=== PATIENT | female | born 1960 | race Caucasian/White ===

== ENCOUNTER 2017-11-09 11:12 | Emergency (ER) | payer OTHER, SELFPAY ==
[2017-11-09] MEDS ORDERED: ISOVUE-370 76%-LOCM 1 ML ONE (11:13)
[2017-11-09 12:03] LABS: #Basophils 0.1 thou/uL (0.0-0.2); #Eosinphils 0.4 thou/uL (0.0-0.7); #Lymphocytes 1.6 thou/uL (1.20-3.40); #Monocytes 0.6 thou/uL (0.11-0.59); #Neutrophils 6.8 thou/uL (1.40-6.50); %Basophils 0.8 % (0.0-1.0); %Eosinophils 4.7 % (0.0-10.0); %Monocytes 6.5 % (0.0-10.0); Hemoglobin 14.6 g/dL (12.0-16.0); Mean Corpuscular HGB CONC 32.9 g/dL (32.0-36.0); Mean Corpuscular Hemoglobin 30.9 pg (27.0-31.0); Mean Platelet Volume 6.8 fL (7.4-10.4); Platelet Count 282 thou/uL (130-400); RBC Distribution Width 12.1 % (11.5-14.5); Red Blood Cell (RBC) Count 4.72 mill/uL (4.20-5.40); White Blood Cell (WBC) Count 9.6 thou/uL (4.8-10.8)
[2017-11-09 12:15] LABS: Bilirubin Negative (Negative); Blood, Urine Large (Negative); Clarity CLOUDY (Clear); Glucose, Urine (Dipstick) Negative (Negative); Leukocyte Large (Negative); Nitrite Negative (Negative); Protein, Urine (Dipstick) Trace mg/dL (Neg-Trace); Specific Gravity, Urine 1.004 (1.002-1.036); Urobilinogen 0.2 mg/dL (0.2-1.0)
[2017-11-09] MEDS ORDERED: Ondansetron HCl/PF 4 MG/2 ML Vial ONE (12:15)
[2017-11-09 12:18] LABS: Bacteria/HPF None Seen HPF (None Seen); Hyaline Casts/LPF 4-6 HYALINE CAST LPF (0-3 Hyaline); Pathc Cast-AUWi Flag 0.72 (0-2.49); Squamous Epithelial None Seen HPF (0-3)
[2017-11-09 12:28] LABS: ALT (SGPT) 30 U/L (8-55); AST (SGOT) 26 U/L (5-34); Albumin 4.4 g/dL (3.5-5.0); Alkaline Phosphatase 82 U/L (40-150); Anion Gap 15 mmol/L (10-20); BUN (Urea Nitrogen) 9 mg/dL (9.8-20.1); Bilirubin, Total 0.8 mg/dL (0.2-1.2); CK (CPK) 41 U/L (29-168); Calc. Creatinine Clearance 0 mL/min (70-130); Calcium 9.6 mg/dL (7.8-10.44); Carbon Dioxide 26 mmol/L (22-29); Chloride 104 mmol/L (98-107); Estimated GFR-MDRD 72; Globulin 2.9 g/dL (2.4-3.5); Glucose 96 mg/dL (70-105); Lipase 18 U/L (8-78); Potassium 3.6 mmol/L (3.5-5.1); Protein, Total 7.3 g/dL (6.0-8.3); Sodium 141 mmol/L (136-145)
[2017-11-09 12:32] LABS: CKMB 0.9 ng/mL (0-6.6); Troponin I Less than 0.010 ng/mL (< 0.028)
--- NOTE | 2017-11-09 14:35 | CT ---
CONTRAST ENHANCED CT ABDOMEN AND PELVIS: Date: 11/09/17 HISTORY: Right lower quadrant pain. FINDINGS: Contrast enhanced CT images of the abdomen and pelvis are obtained after the administration of IV con trast. The lung bases are unremarkable. No evidence of free intraperitoneal air seen. The liver and spleen are unremarkable. The gallbladder and pancreas are unremarkable. Adrenal glands and kidneys demonstrate no evidence of definite suspicious masses. There is a left renal cortical cys t seen. No evidence of hydroureteronephrosis seen. The small bowel is unremarkable. A normal appendix is visualized. No definite evidence of colonic mas s is seen. No evidence of periaortic or pelvic lymphadenopathy seen. IMPRESSION: Normal contrast enhanced CT images of the abdomen and pelvis. POS: [facility]
== END 2017-11-09 13:45 | disposition home or self-care (01) ==
LOC: ERS 11:12
DX: N30.01 Acute cystitis with hematuria (principal); F41.9 Anxiety disorder, unspecified; Z79.899 Other long term (current) drug therapy
CPT/HCPCS: 74177; 80053; 81003; 81015; 82553; 83690; 84484; 85025; 87086; 93005; 96374; J2405

== ENCOUNTER 2018-03-30 20:15 | Emergency (ER) | payer SELFPAY ==
[2018-03-30 21:19] LABS: #Basophils 0.1 thou/uL (0.0-0.2); #Eosinphils 0.3 thou/uL (0.0-0.7); #Lymphocytes 2.8 thou/uL (1.20-3.40); #Monocytes 0.7 thou/uL (0.11-0.59); #Neutrophils 5.8 thou/uL (1.40-6.50); %Basophils 1.4 % (0.0-1.0); %Eosinophils 2.9 % (0.0-10.0); %Lymphocytes 28.8 % (21.0-51.0); %Monocytes 6.9 % (0.0-10.0); Hemoglobin 14.4 g/dL (12.0-16.0); Mean Corpuscular HGB CONC 33.7 g/dL (32.0-36.0); Mean Corpuscular Hemoglobin 31.7 pg (27.0-31.0); Mean Platelet Volume 6.7 fL (7.4-10.4); Platelet Count 246 thou/uL (130-400); RBC Distribution Width 12.5 % (11.5-14.5); Red Blood Cell (RBC) Count 4.56 mill/uL (4.20-5.40); White Blood Cell (WBC) Count 9.6 thou/uL (4.8-10.8)
--- NOTE | 2018-03-30 21:20 | CT ---
CT BRAIN WITHOUT CONTRAST: INDICATIONS: History of not feeling right with lightheadedness and pressure, extending from head down the ne ck. COMPARISON: Prior CT brain, dated 03/01/2013. FINDINGS: No acute infarct, hemorrhage, or hydrocephalus is present. The septum pellucidum and third ventricle are midline. The visualized paranasal sinuses are clear. The mastoid air cells are clear. The sku ll is intact. IMPRESSION: No acute intracranial abnormality demonstrated by CT. POS: [facility]
[2018-03-30 21:38] LABS: ALT (SGPT) 30 U/L (8-55); AST (SGOT) 22 U/L (5-34); Albumin 4.3 g/dL (3.5-5.0); Alkaline Phosphatase 89 U/L (40-150); Anion Gap 15 mmol/L (10-20); BUN (Urea Nitrogen) 25 mg/dL (9.8-20.1); Bilirubin, Total 0.5 mg/dL (0.2-1.2); Calc. Creatinine Clearance 0 mL/min (70-130); Calcium 9.5 mg/dL (7.8-10.44); Carbon Dioxide 27 mmol/L (22-29); Chloride 102 mmol/L (98-107); Estimated GFR-MDRD 71; Globulin 2.5 g/dL (2.4-3.5); Glucose 86 mg/dL (70-105); Potassium 3.7 mmol/L (3.5-5.1); Protein, Total 6.8 g/dL (6.0-8.3); Sodium 140 mmol/L (136-145)
== END 2018-03-30 22:31 | disposition home or self-care (01) ==
LOC: ERS 20:15
DX: I10 Essential (primary) hypertension (principal); J32.9 Chronic sinusitis, unspecified; F41.9 Anxiety disorder, unspecified; E20.9 Hypoparathyroidism, unspecified
CPT/HCPCS: 36415; 70450; 80053; 84484; 85025; 93005; 94760

== ENCOUNTER 2018-10-01 10:15 | Outpatient (CLI) | payer OTHER ==
--- NOTE | 2018-10-01 17:26 | NM ---
HEPATOBILIARY SCAN: Date: 10/01/18 HISTORY: Right upper quadrant pain. No gallstones on ultrasound of 09/29/18. RADIOPHARMACEUTICAL: 5.3 mCi technetium-99m mebrofenin injected intravenously. FINDINGS: There is good tracer extraction by the liver with prompt excretion into the biliary tract and small b owel loops, and normal filling of the gallbladder. The calculated gallbladder ejection fraction follo wing an oral fatty meal measures 54%. IMPRESSION: Normal exam. POS: [facility]
== END 2018-10-01 10:16 | disposition home or self-care (01) ==
LOC: NM 10:15
PROVIDERS: ATTEND Physician Assistant Medical
DX: R10.11 Right upper quadrant pain (principal)
CPT/HCPCS: 78227; A9537

== ENCOUNTER 2021-03-01 11:26 | Inpatient (IN) | payer OTHER ==
[2021-03-01] MEDS ORDERED: Ketorolac Tromethamine 30 MG/ML VIAL ONE (11:57)
[2021-03-01] MEDS ORDERED: Ondansetron PF 4 MG/2 ML Vial ONE (11:57)
[2021-03-01 12:04] LABS: #Eosinphils 0.1 thou/uL (0.0-0.7); #Neutrophils 9.3 thou/uL (1.40-6.50); %Basophils 0.2 % (0.0-1.0); %Eosinophils 0.8 % (0.0-10.0); %Lymphocytes 16.1 % (21.0-51.0); %Monocytes 8.2 % (0.0-10.0); %Neutrophils 74.6 % (42.0-75.0); Hemoglobin 14.3 g/dL (12.0-16.0); Mean Corpuscular HGB CONC 34.1 g/dL (32.0-36.0); Mean Corpuscular Hemoglobin 32.4 pg (27.0-31.0); Mean Platelet Volume 6.2 fL (7.4-10.4); Platelet Count 286 thou/uL (130-400); RBC Distribution Width 12.9 % (11.5-14.5); Red Blood Cell (RBC) Count 4.41 mill/uL (4.20-5.40); White Blood Cell (WBC) Count 12.5 thou/uL (4.8-10.8)
[2021-03-01 12:20] LABS: ALT (SGPT) 22 U/L (8-55); AST (SGOT) 18 U/L (5-34); Albumin 4.2 g/dL (3.4-4.8); Alkaline Phosphatase 80 U/L (40-110); Anion Gap 17 mmol/L (10-20); BUN (Urea Nitrogen) 10 mg/dL (9.8-20.1); Bilirubin, Total 1.2 mg/dL (0.2-1.2); Calc. Creatinine Clearance 0 mL/min (70-130); Calcium 8.8 mg/dL (7.8-10.44); Carbon Dioxide 24 mmol/L (23-31); Chloride 103 mmol/L (98-107); Globulin 2.4 g/dL (2.4-3.5); Glucose 101 mg/dL (80-115); Lipase 16 U/L (8-78); Potassium 3.7 mmol/L (3.5-5.1); Protein, Total 6.6 g/dL (5.8-8.1); Sodium 140 mmol/L (136-145)
[2021-03-01 13:05] LABS: Bacteria/HPF None Seen HPF (None Seen); Bilirubin Negative (Negative); Blood, Urine Negative (Negative); Clarity Clear (Clear); Glucose, Urine (Dipstick) Normal (Negative); Ketone, Urine Negative (Negative); Leukocyte 75 Leu/uL (Negative); Nitrite Negative (Negative); Protein, Urine (Dipstick) Negative (Neg-Trace); RBC/HPF 0-3 HPF (0-3); Specific Gravity, Urine 1.011 (1.002-1.036); Squamous Epithelial 0-3 HPF (0-3); Urobilinogen Normal mg/dL (Less than 2)
[2021-03-01] MEDS ORDERED: Morphine 4 MG/ML VIAL ONE (15:24)
[2021-03-01] MEDS ORDERED: Iopamidol 370 76% 100 ML VIAL ONE (16:29)
[2021-03-01] MEDS ORDERED: Acetaminophen 650 MG Suppository PR PRN (19:01)
[2021-03-01] MEDS ORDERED: diphenhydrAMINE 50 MG/ML VIAL IVP PRN (19:04)
[2021-03-01] MEDS ORDERED: Morphine 4 MG/ML VIAL SLOW IVP PRN ×2 (19:08→19:17)
[2021-03-01] MEDS ORDERED: Enoxaparin Sodium 40 MG/0.4 ML SYRINGE SC SCH (19:15)
[2021-03-01] MEDS: Sodium Chloride 0.9% 1,000 ML IV SCH (19:39)
[2021-03-01] MEDS: Pantoprazole 40 MG VIAL IVP SCH (19:40)
[2021-03-01 20:03] LABS: #Basophils 0.1 thou/uL (0.0-0.2); #Eosinphils 0.2 thou/uL (0.0-0.7); #Lymphocytes 2.2 thou/uL (1.20-3.40); #Monocytes 0.8 thou/uL (0.11-0.59); #Neutrophils 6.1 thou/uL (1.40-6.50); %Basophils 0.7 % (0.0-1.0); %Eosinophils 2.4 % (0.0-10.0); %Lymphocytes 23.9 % (21.0-51.0); %Monocytes 8.3 % (0.0-10.0); %Neutrophils 64.7 % (42.0-75.0); Hemoglobin 13.7 g/dL (12.0-16.0); Mean Corpuscular HGB CONC 32.8 g/dL (32.0-36.0); Mean Corpuscular Hemoglobin 31.9 pg (27.0-31.0); Mean Corpuscular Volume 97.2 fL (78.0-98.0); Mean Platelet Volume 6.7 fL (7.4-10.4); Platelet Count 234 thou/uL (130-400); RBC Distribution Width 13.1 % (11.5-14.5); Red Blood Cell (RBC) Count 4.28 mill/uL (4.20-5.40); White Blood Cell (WBC) Count 9.4 thou/uL (4.8-10.8)
[2021-03-01 20:28] LABS: ALT (SGPT) 18 U/L (8-55); AST (SGOT) 19 U/L (5-34); Albumin 3.7 g/dL (3.4-4.8); Alkaline Phosphatase 68 U/L (40-110); Anion Gap 15 mmol/L (10-20); BUN (Urea Nitrogen) 10 mg/dL (9.8-20.1); Bilirubin, Total 1.2 mg/dL (0.2-1.2); Calc. Creatinine Clearance 0 mL/min (70-130); Calcium 8.5 mg/dL (7.8-10.44); Carbon Dioxide 22 mmol/L (23-31); Chloride 107 mmol/L (98-107); Globulin 2.5 g/dL (2.4-3.5); Glucose 86 mg/dL (80-115); Potassium 3.4 mmol/L (3.5-5.1); Protein, Total 6.2 g/dL (5.8-8.1); Sodium 141 mmol/L (136-145)
[2021-03-01] MEDS ORDERED: Famotidine/PF 20 mg/2ml Vial SLOW IVP SCH (21:00)
[2021-03-01] MEDS: Ketorolac Tromethamine 30 MG/ML VIAL IVP SCH (21:14)
[2021-03-02] MEDS: Sodium Chloride 0.9% 1,000 ML IV SCH ×2 (04:46→15:55)
[2021-03-02] MEDS: Ketorolac Tromethamine 30 MG/ML VIAL IVP SCH (05:38)
[2021-03-02 06:00] LABS: #Eosinphils 0.3 thou/uL (0.0-0.7); #Lymphocytes 1.6 thou/uL (1.20-3.40); #Monocytes 0.6 thou/uL (0.11-0.59); #Neutrophils 4.1 thou/uL (1.40-6.50); %Basophils 0.4 % (0.0-1.0); %Lymphocytes 23.9 % (21.0-51.0); %Monocytes 9.2 % (0.0-10.0); %Neutrophils 61.4 % (42.0-75.0); Hemoglobin 12.3 g/dL (12.0-16.0); Mean Corpuscular Volume 96.9 fL (78.0-98.0); Mean Platelet Volume 6.3 fL (7.4-10.4); Platelet Count 202 thou/uL (130-400); RBC Distribution Width 12.9 % (11.5-14.5); Red Blood Cell (RBC) Count 3.84 mill/uL (4.20-5.40); White Blood Cell (WBC) Count 6.7 thou/uL (4.8-10.8)
[2021-03-02 06:23] LABS: ALT (SGPT) 17 U/L (8-55); AST (SGOT) 15 U/L (5-34); Albumin 3.4 g/dL (3.4-4.8); Alkaline Phosphatase 59 U/L (40-110); Anion Gap 13 mmol/L (10-20); BUN (Urea Nitrogen) 12 mg/dL (9.8-20.1); Bilirubin, Total 1.1 mg/dL (0.2-1.2); Calc. Creatinine Clearance 115 mL/min (70-130); Calcium 8.1 mg/dL (7.8-10.44); Carbon Dioxide 25 mmol/L (23-31); Chloride 108 mmol/L (98-107); Globulin 2.4 g/dL (2.4-3.5); Glucose 89 mg/dL (80-115); Lipase 12 U/L (8-78); Potassium 3.5 mmol/L (3.5-5.1); Protein, Total 5.8 g/dL (5.8-8.1); Sodium 142 mmol/L (136-145)
[2021-03-02] MEDS ORDERED: guaiFENesin ER 600 MG TAB PO PRN (07:58)
[2021-03-02] MEDS ORDERED: THYROID PO SCH (09:00)
[2021-03-02] MEDS ORDERED: Enoxaparin Sodium 40 MG/0.4 ML SYRINGE SC SCH (09:00)
[2021-03-02] MEDS ORDERED: CALCIUM CARBONATE PO SCH (09:00)
[2021-03-02] MEDS: Escitalopram Oxalate 10 mg Tablet PO SCH (09:31)
[2021-03-02] MEDS: Pantoprazole 40 MG VIAL IVP SCH ×2 (09:31→21:18)
[2021-03-02] MEDS: Acetaminophen 325 MG TAB PO PRN (19:33)
[2021-03-02] MEDS: Ondansetron PF 4 MG/2 ML Vial IVP PRN (19:36)
[2021-03-03] MEDS: Sodium Chloride 0.9% 1,000 ML IV SCH ×3 (02:34→20:54)
[2021-03-03] MEDS: Acetaminophen 325 MG TAB PO PRN (04:11)
[2021-03-03 07:09] LABS: SARS-CoV-2 NAA Rapid Test Not Detected (NotDetected)
[2021-03-03] MEDS: Pantoprazole 40 MG VIAL IVP SCH (09:50)
[2021-03-03] MEDS ORDERED: PROPOFOL 200 MG/20 ML VIAL ONE (09:56)
[2021-03-03] MEDS: Escitalopram Oxalate 10 mg Tablet PO SCH (12:23)
[2021-03-03] MEDS ORDERED: Ketorolac Tromethamine 30 MG/ML VIAL ONE (16:48)
[2021-03-03] MEDS: Ketorolac Tromethamine 30 MG/ML VIAL IVP PRN (16:50)
[2021-03-03 18:21] LABS: #Eosinphils 0.3 thou/uL (0.0-0.7); #Lymphocytes 1.9 thou/uL (1.20-3.40); #Monocytes 0.5 thou/uL (0.11-0.59); #Neutrophils 3.7 thou/uL (1.40-6.50); %Basophils 0.7 % (0.0-1.0); %Lymphocytes 29.2 % (21.0-51.0); %Monocytes 7.4 % (0.0-10.0); %Neutrophils 58.6 % (42.0-75.0); Hemoglobin 12.9 g/dL (12.0-16.0); Mean Corpuscular HGB CONC 34.5 g/dL (32.0-36.0); Mean Corpuscular Hemoglobin 33.6 pg (27.0-31.0); Mean Corpuscular Volume 97.6 fL (78.0-98.0); Mean Platelet Volume 6.6 fL (7.4-10.4); Platelet Count 238 thou/uL (130-400); RBC Distribution Width 12.6 % (11.5-14.5); Red Blood Cell (RBC) Count 3.84 mill/uL (4.20-5.40); White Blood Cell (WBC) Count 6.3 thou/uL (4.8-10.8)
[2021-03-03 18:42] LABS: ALT (SGPT) 20 U/L (8-55); AST (SGOT) 20 U/L (5-34); Albumin 3.6 g/dL (3.4-4.8); Alkaline Phosphatase 64 U/L (40-110); Anion Gap 13 mmol/L (10-20); BUN (Urea Nitrogen) 6 mg/dL (9.8-20.1); Bilirubin, Total 0.6 mg/dL (0.2-1.2); Calc. Creatinine Clearance 122 mL/min (70-130); Calcium 8.4 mg/dL (7.8-10.44); Carbon Dioxide 24 mmol/L (23-31); Chloride 107 mmol/L (98-107); Globulin 2.5 g/dL (2.4-3.5); Glucose 75 mg/dL (80-115); Lipase 14 U/L (8-78); Potassium 3.4 mmol/L (3.5-5.1); Protein, Total 6.1 g/dL (5.8-8.1); Sodium 141 mmol/L (136-145)
[2021-03-04] MEDS: Sodium Chloride 0.9% 1,000 ML IV SCH ×3 (05:14→23:58)
[2021-03-04] MEDS ORDERED: Levothyroxine Sodium 88 MCG TAB PO SCH (06:00)
[2021-03-04] MEDS ORDERED: Escitalopram Oxalate 10 mg Tablet PO SCH (09:00)
[2021-03-04] MEDS: Calcium Carbonate 600 MG + Vit D TAB PO SCH ×3 (09:07→21:24)
[2021-03-04] MEDS: Escitalopram Oxalate 10 mg Tablet PO SCH (09:08)
[2021-03-04] MEDS ORDERED: Ketorolac Tromethamine 30 MG/ML VIAL IVP SCH (12:15)
[2021-03-04] MEDS ORDERED: Piperacillin/Tazobactam 3.375 GM in Sodium Chloride 0.9% 100 ML IVPB SCH (12:15)
[2021-03-04] MEDS ORDERED: diphenhydrAMINE 25 MG CAP PO SCH (12:45)
[2021-03-04] MEDS ORDERED: Scopolamine 1.5 mg/72 hour Patch TD SCH (14:00)
[2021-03-05] MEDS: Levothyroxine Sodium 100 MCG TAB PO SCH (05:09)
[2021-03-05] MEDS ORDERED: Sodium Chloride 0.9% 1,000 ML IV SCH (08:00)
[2021-03-05] MEDS ORDERED: Ondansetron ORAL SOLN. 4 MG/5 ML UDCUP PO PRN (08:24)
[2021-03-05] MEDS ORDERED: Ibuprofen 600 MG TAB PO PRN (08:24)
[2021-03-05] MEDS ORDERED: traMADol HCl 50 MG TAB PO PRN (08:24)
[2021-03-05] MEDS ORDERED: Acetaminophen 500 MG TAB PO PRN (08:24)
[2021-03-05] MEDS ORDERED: Calcitriol 0.25 MCG CAP PO SCH ×2 (08:30→09:00)
[2021-03-05] MEDS ORDERED: Midazolam HCl 2 mg/2 ml Vial ONE (08:43)
[2021-03-05] MEDS ORDERED: EPINEPHrine 1 MG/ML AMP ONE (09:56)
[2021-03-05] MEDS ORDERED: Bupivacaine PF 0.5% 30 ML VIAL ONE (09:56)
[2021-03-05] MEDS ORDERED: Fentanyl 100 MCG/2 ML VIAL ONE ×4 (10:10→12:07)
[2021-03-05] MEDS ORDERED: Dexamethasone 20 MG/5 ML VIAL ONE (10:14)
[2021-03-05] MEDS ORDERED: PHENYLEPHRINE-NS 100 MCG/ML 10 ML SYRINGE ONE (10:14)
[2021-03-05] MEDS ORDERED: Ondansetron PF 4 MG/2 ML Vial ONE (10:14)
[2021-03-05] MEDS ORDERED: Rocuronium Bromide 10 MG/ML (10ML VIAL) ONE (10:14)
[2021-03-05] MEDS ORDERED: PROPOFOL 200 MG/20 ML VIAL ONE (10:14)
[2021-03-05] MEDS ORDERED: Ketorolac Tromethamine 30 MG/ML VIAL ONE (10:14)
[2021-03-05] MEDS ORDERED: Glycopyrrolate 0.2 MG/ML 5 ML SYRINGE ONE ×2 (10:14)
[2021-03-05] MEDS ORDERED: Piperacillin/Tazobactam 3.375 GM VIAL ONE (10:15)
[2021-03-05] MEDS ORDERED: Sodium Chloride 0.9% 100 ML ONE (10:15)
[2021-03-05] MEDS: Calcium Carbonate 600 MG + Vit D TAB PO SCH ×3 (11:11→21:48)
[2021-03-05] MEDS ORDERED: hydrALAZINE 20 MG/ML VIAL ONE (11:40)
[2021-03-05] MEDS: Escitalopram Oxalate 10 mg Tablet PO SCH (14:57)
[2021-03-05] MEDS: Ketorolac Tromethamine 30 MG/ML VIAL IVP PRN (14:58)
[2021-03-05] MEDS: Ondansetron PF 4 MG/2 ML Vial IVP PRN (14:58)
[2021-03-05] MEDS ORDERED: Simethicone Chewable 80 MG TAB PO PRN (20:56)
[2021-03-06] MEDS: Ondansetron PF 4 MG/2 ML Vial IVP PRN (00:14)
[2021-03-06 00:27] VITALS: BMI 35.4
[2021-03-06] MEDS: Levothyroxine Sodium 100 MCG TAB PO SCH (05:33)
[2021-03-06] MEDS: Calcium Carbonate 600 MG + Vit D TAB PO SCH (07:57)
[2021-03-06] MEDS: Escitalopram Oxalate 10 mg Tablet PO SCH (07:57)
[2021-03-06 08:43] VITALS: BP 153/79; TEMP 97.7
[2021-03-06] MEDS ORDERED: Calcitriol 0.25 MCG CAP PO SCH (09:00)
[2021-03-06] MEDS: LIOTHYRONINE PO SCH (09:12)
== END 2021-03-06 08:05 | disposition home or self-care (01) | DRG 418 ==
LOC: ERS 11:26 → T4-B 17:28 → OBSVTOIN 03-03 17:24
PROVIDERS: ADMIT Family Medicine; ATTEND Family Medicine
PROC: 0DJ08ZZ Inspection of Upper Intestinal Tract, Via Natural or Artificial Opening Endoscopic (ICD-10-PCS; 2021-03-03)
PROC: 0FT44ZZ Resection of Gallbladder, Percutaneous Endoscopic Approach (ICD-10-PCS; principal; 2021-03-05)
DX: K81.1 Chronic cholecystitis (principal); E84.9 Cystic fibrosis, unspecified; Z20.822 Contact with and (suspected) exposure to COVID-19; K82.8 Other specified diseases of gallbladder; M32.9 Systemic lupus erythematosus, unspecified; K58.9 Irritable bowel syndrome, unspecified; E06.3 Autoimmune thyroiditis; F41.9 Anxiety disorder, unspecified; E89.0 Postprocedural hypothyroidism; K29.80 Duodenitis without bleeding; E20.9 Hypoparathyroidism, unspecified; Z90.710 Acquired absence of both cervix and uterus; Z88.1 Allergy status to other antibiotic agents; Z88.8 Allergy status to other drugs, medicaments and biological substances; Z79.899 Other long term (current) drug therapy; Z79.890 Hormone replacement therapy; Z87.891 Personal history of nicotine dependence
CPT/HCPCS: 36415; 74177; 76705; 78227; 80053; 81003; 81015; 82150; 83690; 84443; 85025; 88304; 93005; 96374; 96375; 96376; A9537; C1713; C9113; G0378; J0171; J0360; J1100; J1610; J1885; J1956; J2250; J2270; J2405; J2543; J2704; J3010; J3490; J7050; Q9967; S0020; U0002

== ENCOUNTER 2022-03-16 11:20 | Observation (INO) | payer OTHER ==
[2022-03-16 12:08] LABS: #Basophils 0.1 thou/uL (0.0-0.2); #Eosinphils 0.3 thou/uL (0.0-0.7); #Lymphocytes 2.1 thou/uL (1.20-3.40); #Monocytes 0.6 thou/uL (0.11-0.59); #Neutrophils 5.5 thou/uL (1.40-6.50); %Basophils 0.8 % (0.0-1.0); %Eosinophils 3.4 % (0.0-10.0); %Lymphocytes 24.8 % (21.0-51.0); Hemoglobin 15.5 g/dL (12.0-16.0); Mean Corpuscular HGB CONC 34.1 g/dL (32.0-36.0); Mean Corpuscular Hemoglobin 32.7 pg (27.0-31.0); Mean Corpuscular Volume 95.9 fl (78.0-98.0); Mean Platelet Volume 6.5 fL (7.4-10.4); Platelet Count 290 10x3/uL (130-400); RBC Distribution Width 12.2 % (11.5-14.5); Red Blood Cell (RBC) Count 4.74 mill/uL (4.20-5.40); White Blood Cell (WBC) Count 8.6 10x3/uL (4.8-10.8)
[2022-03-16 12:10] LABS: Bilirubin Negative (Negative); Blood, Urine Negative (Negative); Clarity Clear (Clear); Glucose, Urine (Dipstick) Normal (Negative); Ketone, Urine Negative (Negative); Leukocyte Negative Leu/uL (Negative); Nitrite Negative (Negative); Protein, Urine (Dipstick) Negative (Neg-Trace); Specific Gravity, Urine 1.005 (1.002-1.036); Urobilinogen Normal mg/dL (Less than 2)
[2022-03-16] MEDS ORDERED: Acetaminophen 500 MG TAB ONE (12:15)
[2022-03-16 12:23] LABS: ALT (SGPT) 31 U/L (8-55); AST (SGOT) 23 U/L (5-34); Albumin 4.2 g/dL (3.4-4.8); Alkaline Phosphatase 84 U/L (40-110); Anion Gap 12 mmol/L (10-20); BUN (Urea Nitrogen) 15 mg/dL (9.8-20.1); Bilirubin, Total 0.8 mg/dL (0.2-1.2); Calc. Creatinine Clearance 0 mL/min (70-130); Calcium 9.3 mg/dL (7.8-10.44); Carbon Dioxide 30 mmol/L (23-31); Chloride 101 mmol/L (98-107); Estimated GFR 84; Globulin 2.9 g/dL (2.4-3.5); Glucose 98 mg/dL (80-115); Potassium 3.8 mmol/L (3.5-5.1); Protein, Total 7.1 g/dL (5.8-8.1); Sodium 139 mmol/L (136-145)
[2022-03-16] MEDS ORDERED: Aspirin Chewable 81 MG TAB ONE (13:18)
[2022-03-16] MEDS ORDERED: Nitroglycerin 2% Ointment 1 INCH/1 GM Packet ONE (13:18)
[2022-03-16] MEDS ORDERED: Ondansetron ODT 4 MG TAB PO PRN (15:09)
[2022-03-16] MEDS ORDERED: Ondansetron PF 4 MG/2 ML Vial IVP PRN (15:09)
[2022-03-16 15:18] LABS: Troponin I Less than 0.010 ng/mL (< 0.028)
[2022-03-16] MEDS ORDERED: Lorazepam 0.5 MG TAB PO PRN (15:31)
[2022-03-16 16:30] LABS: Magnesium 1.8 mg/dL (1.6-2.6)
[2022-03-16 17:39] LABS: Troponin I Less than 0.010 ng/mL (< 0.028)
[2022-03-16] MEDS: Acetaminophen 325 MG TAB PO PRN (18:25)
[2022-03-16] MEDS: Calcium Carbonate 600 MG + Vit D TAB PO SCH (20:26)
[2022-03-16] MEDS ORDERED: Rosuvastatin 20 MG TAB PO SCH (21:00)
[2022-03-17 05:20] LABS: #Basophils 0.1 thou/uL (0.0-0.2); #Eosinphils 0.6 thou/uL (0.0-0.7); #Lymphocytes 2.7 thou/uL (1.20-3.40); #Monocytes 0.7 thou/uL (0.11-0.59); #Neutrophils 3.8 thou/uL (1.40-6.50); %Basophils 0.9 % (0.0-1.0); %Eosinophils 7.3 % (0.0-10.0); %Lymphocytes 34.1 % (21.0-51.0); %Monocytes 9.1 % (0.0-10.0); %Neutrophils 48.7 % (42.0-75.0); Hemoglobin 13.8 g/dL (12.0-16.0); Mean Corpuscular HGB CONC 33.9 g/dL (32.0-36.0); Mean Corpuscular Hemoglobin 33.1 pg (27.0-31.0); Mean Corpuscular Volume 97.4 fl (78.0-98.0); Mean Platelet Volume 6.7 fL (7.4-10.4); Platelet Count 231 10x3/uL (130-400); RBC Distribution Width 12.4 % (11.5-14.5); Red Blood Cell (RBC) Count 4.19 mill/uL (4.20-5.40); White Blood Cell (WBC) Count 7.9 10x3/uL (4.8-10.8)
[2022-03-17 05:39] LABS: Anion Gap 11 mmol/L (10-20); BUN (Urea Nitrogen) 15 mg/dL (9.8-20.1); Calc. Creatinine Clearance 114 mL/min (70-130); Calcium 8.4 mg/dL (7.8-10.44); Carbon Dioxide 26 mmol/L (23-31); Cardiac Risk 3.9 (Less than 4.5); Chloride 107 mmol/L (98-107); Cholesterol 207 mg/dl (< 200 Desired); Estimated GFR 95; Glucose 98 mg/dL (80-115); HDL Cholesterol 53 mg/dL (>60 Neg Risk); LDL Cholesterol, Calculated 130 mg/dL; Potassium 3.8 mmol/L (3.5-5.1); Sodium 140 mmol/L (136-145); Triglycerides 121 mg/dL (Less than 150)
[2022-03-17] MEDS ORDERED: Levothyroxine Sodium 88 MCG TAB PO SCH (06:00)
[2022-03-17] MEDS ORDERED: Aspirin 81 mg Enteric Coated Tablet PO SCH (09:00)
[2022-03-17] MEDS ORDERED: Calcitriol 0.25 MCG CAP PO SCH (09:00)
[2022-03-17] MEDS ORDERED: LIOTHYRONINE PO SCH (09:00)
[2022-03-17] MEDS ORDERED: Escitalopram Oxalate 10 mg Tablet PO SCH ×2 (09:00→10:00)
[2022-03-17] MEDS ORDERED: Oxymetazoline HCl 0.05% (30 ML BOT) NS SCH (09:00)
[2022-03-17] MEDS: Calcium Carbonate 600 MG + Vit D TAB PO SCH ×2 (09:20→14:11)
[2022-03-17] MEDS ORDERED: busPIRone HCl 5 MG TAB PO SCH (10:45)
[2022-03-17] MEDS ORDERED: Iopamidol-370 76% 500 ML 1 ML ONE (11:30)
[2022-03-17] MEDS: busPIRone HCl 5 MG TAB PO SCH ×2 (14:11→17:40)
[2022-03-17] MEDS: Acetaminophen 325 MG TAB PO PRN (14:12)
[2022-03-17 16:33] VITALS: BP 156/83; TEMP 98.1
[2022-03-18] MEDS ORDERED: LIOTHYRONINE PO SCH (06:00)
[2022-03-18] MEDS ORDERED: Levothyroxine Sodium 100 MCG TAB PO SCH (06:00)
[2022-03-18] MEDS ORDERED: Escitalopram Oxalate 20 mg Tablet PO SCH (09:00)
== END 2022-03-17 17:53 | disposition home or self-care (01) ==
LOC: ERS 11:20 → 2SW 14:29
PROVIDERS: ADMIT Family Medicine; ATTEND Nurse Practitioner Family
DX: H53.8 Other visual disturbances (principal); R07.89 Other chest pain; E89.0 Postprocedural hypothyroidism; E20.9 Hypoparathyroidism, unspecified; I08.1 Rheumatic disorders of both mitral and tricuspid valves; R03.0 Elevated blood-pressure reading, without diagnosis of hypertension; Z87.891 Personal history of nicotine dependence; Z79.82 Long term (current) use of aspirin; Z79.890 Hormone replacement therapy; Z79.899 Other long term (current) drug therapy; Z88.1 Allergy status to other antibiotic agents; Z88.8 Allergy status to other drugs, medicaments and biological substances; Z20.822 Contact with and (suspected) exposure to COVID-19
CPT/HCPCS: 36415; 70450; 70496; 70498; 70551; 71045; 80048; 80053; 80061; 81003; 82533; 83036; 83735; 84443; 84484; 85025; 85652; 86140; 93005; 93306; 93880; G0378; Q9967; U0003; U0005

== ENCOUNTER 2022-04-02 01:10 | Emergency (ER) | payer OTHER | END 2022-04-02 01:22 | disposition left against medical advice (07) | LOC: ERS 01:10 | DX: Z53.21 Procedure and treatment not carried out due to patient leaving prior to being seen by health care provider (principal) ==

== ENCOUNTER 2022-09-05 20:32 | Emergency (ER) | payer OTHER ==
[2022-09-05 21:44] LABS: #Basophils 0.1 thou/uL (0.0-0.2); #Eosinphils 0.3 thou/uL (0.0-0.7); #Monocytes 0.5 thou/uL (0.11-0.59); #Neutrophils 5.2 thou/uL (1.40-6.50); %Basophils 0.7 % (0.0-1.0); %Eosinophils 3.2 % (0.0-10.0); %Lymphocytes 26.4 % (21.0-51.0); %Monocytes 6.6 % (0.0-10.0); %Neutrophils 62.9 % (42.0-75.0); Hemoglobin 14.1 g/dL (12.0-16.0); Mean Corpuscular Hemoglobin 32.4 pg (27.0-31.0); Mean Corpuscular Volume 95.4 fl (78.0-98.0); Platelet Count 209 10x3/uL (130-400); RBC Distribution Width 13.2 % (11.5-14.5); Red Blood Cell (RBC) Count 4.35 mill/uL (4.20-5.40); White Blood Cell (WBC) Count 8.2 10x3/uL (4.8-10.8)
[2022-09-05 22:11] LABS: ALT (SGPT) 28 U/L (8-55); AST (SGOT) 25 U/L (5-34); Albumin 4.1 g/dL (3.4-4.8); Alkaline Phosphatase 72 U/L (40-110); Anion Gap 14 mmol/L (10-20); BUN (Urea Nitrogen) 16 mg/dL (9.8-20.1); Bilirubin, Total 0.4 mg/dL (0.2-1.2); CK (CPK) 50 U/L (29-168); Calc. Creatinine Clearance 0 mL/min (70-130); Calcium 8.3 mg/dL (7.8-10.44); Carbon Dioxide 22 mmol/L (23-31); Chloride 104 mmol/L (98-107); Estimated GFR 71; Globulin 2.4 g/dL (2.4-3.5); Glucose 114 mg/dL (80-115); Potassium 3.1 mmol/L (3.5-5.1); Protein, Total 6.5 g/dL (5.8-8.1); Sodium 137 mmol/L (136-145)
[2022-09-05 22:12] LABS: Acetaminophen Less than 10 mcg/mL (10.0-30.0); Salicylate Less than 8.0 mg/dL (15.0-30.0)
[2022-09-05] MEDS ORDERED: LORazepam 2 MG/ML SYR.(CARPUJECT) ONE (22:42)
[2022-09-05 23:19] LABS: Bacteria/HPF None Seen HPF (None Seen); Bilirubin Negative (Negative); Blood, Urine Negative (Negative); CAUTI Indications for Culture Alt mental st,lethar; Clarity Clear (Clear); Glucose, Urine (Dipstick) Normal (Negative); Ketone, Urine Negative (Negative); Leukocyte Negative Leu/uL (Negative); Nitrite Negative (Negative); Protein, Urine (Dipstick) Negative (Neg-Trace); RBC/HPF 0-3 HPF (0-3); Specific Gravity, Urine 1.013 (1.002-1.036); Squamous Epithelial None Seen HPF (0-3); Urobilinogen Normal mg/dL (Less than 2); WBC/HPF 0-3 HPF (0-3); pH, Urine 5.5 (5.0-9.0)
[2022-09-05 23:27] LABS: Amphetamine Not Detected (NotDetected); Barbiturates Screen Not Detected (NotDetected); Benzodiazepine Screen Detected (NotDetected); Cocaine Metabolite Screen Not Detected (NotDetected); Methadone Not Detected (NotDetected); Methamphetamine Not Detected (NotDetected); Opiate Screen Not Detected (NotDetected); Oxycodone Screen Not Detected (NotDetected); Phencyclidine (PCP) Not Detected (NotDetected); THC/Cannabinoid Screen Detected (NotDetected); Tricyclic Screen Not Detected (NotDetected)
[2022-09-05 23:34] LABS: Urine Culture Reflex No No
== END 2022-09-06 04:51 | disposition home or self-care (01) ==
LOC: ERS 20:32
DX: F10.129 Alcohol abuse with intoxication, unspecified (principal); Y90.7 Blood alcohol level of 200-239 mg/100 ml
CPT/HCPCS: 36415; 70450; 71045; 80053; 80306; 80307; 81001; 82550; 85025; 93005; 96361; 96374; J2060

== ENCOUNTER 2022-09-10 08:15 | Emergency (ER) | payer OTHER ==
[2022-09-10 09:01] LABS: #Basophils 0.1 thou/uL (0.0-0.2); #Eosinphils 0.5 thou/uL (0.0-0.7); #Monocytes 0.6 thou/uL (0.11-0.59); #Neutrophils 4.3 thou/uL (1.40-6.50); %Basophils 0.7 % (0.0-1.0); %Eosinophils 6.2 % (0.0-10.0); %Lymphocytes 24.8 % (21.0-51.0); %Monocytes 8.4 % (0.0-10.0); %Neutrophils 59.6 % (42.0-75.0); Hemoglobin 14.7 g/dL (12.0-16.0); Mean Corpuscular HGB CONC 33.6 g/dL (32.0-36.0); Mean Corpuscular Hemoglobin 32.2 pg (27.0-31.0); Mean Corpuscular Volume 95.8 fl (78.0-98.0); Platelet Count 241 10x3/uL (130-400); RBC Distribution Width 13.4 % (11.5-14.5); Red Blood Cell (RBC) Count 4.57 mill/uL (4.20-5.40); White Blood Cell (WBC) Count 7.3 10x3/uL (4.8-10.8)
[2022-09-10 09:44] LABS: AST (SGOT) 29 U/L (5-34); Albumin 4.2 g/dL (3.4-4.8); Alkaline Phosphatase 80 U/L (40-110); Anion Gap 5 mmol/L (10-20); BUN (Urea Nitrogen) 14 mg/dL (9.8-20.1); Bilirubin, Total 0.4 mg/dL (0.2-1.2); Calc. Creatinine Clearance 0 mL/min (70-130); Calcium 9.2 mg/dL (7.6-10.4); Carbon Dioxide 28 mmol/L (23-31); Chloride 108 mmol/L (98-107); Estimated GFR 73; Globulin 2.6 g/dL (2.4-3.5); Glucose 102 mg/dL (80-115); Potassium 4.4 mmol/L (3.5-5.1); Protein, Total 6.8 g/dL (5.8-8.1); Sodium 137 mmol/L (136-145)
[2022-09-10 09:45] LABS: ALT (SGPT) 30 U/L (8-55)
[2022-09-10] MEDS ORDERED: Metoclopramide HCl 10 MG/2 ML VIAL ONE ×2 (11:26→11:32)
[2022-09-10] MEDS ORDERED: Ketorolac Tromethamine 30 MG/ML VIAL ONE ×2 (11:26→11:42)
[2022-09-10] MEDS ORDERED: diphenhydrAMINE 50 MG/ML VIAL ONE (11:26)
== END 2022-09-10 12:05 | disposition left against medical advice (07) ==
LOC: ERS 08:15
DX: I10 Essential (primary) hypertension (principal); R51.9 Headache, unspecified
CPT/HCPCS: 36415; 70450; 80053; 84484; 85025; 93005; 96374; J1200; J1885; J2765

== ENCOUNTER 2022-10-21 11:32 | Emergency (ER) | payer OTHER ==
[2022-10-21 12:43] LABS: #Eosinphils 0.3 thou/uL (0.0-0.7); #Monocytes 0.6 thou/uL (0.11-0.59); #Neutrophils 3.8 thou/uL (1.40-6.50); %Basophils 0.5 % (0.0-1.0); %Eosinophils 4.2 % (0.0-10.0); %Lymphocytes 26.4 % (21.0-51.0); %Monocytes 9.4 % (0.0-10.0); %Neutrophils 59.2 % (42.0-75.0); Hematocrit 41.2 % (36.0-47.0); Hemoglobin 14.3 g/dL (12.0-16.0); Mean Corpuscular HGB CONC 34.7 g/dL (32.0-36.0); Mean Corpuscular Hemoglobin 32.2 pg (27.0-31.0); Mean Corpuscular Volume 92.8 fl (78.0-98.0); Mean Platelet Volume 9.1 fL (7.4-10.4); Platelet Count 235 10x3/uL (130-400); RBC Distribution Width 13.2 % (11.5-14.5); Red Blood Cell (RBC) Count 4.44 mill/uL (4.20-5.40); White Blood Cell (WBC) Count 6.4 10x3/uL (4.8-10.8)
[2022-10-21 13:17] LABS: Troponin I Less than 0.010 ng/mL (< 0.028)
[2022-10-21 13:21] LABS: ALT (SGPT) 25 U/L (8-55); AST (SGOT) 22 U/L (5-34); Albumin 4.1 g/dL (3.4-4.8); Alkaline Phosphatase 84 U/L (40-110); Anion Gap 12 mmol/L (10-20); BUN (Urea Nitrogen) 15 mg/dL (9.8-20.1); Bilirubin, Total 0.5 mg/dL (0.2-1.2); Calc. Creatinine Clearance 0 mL/min (70-130); Calcium 9.2 mg/dL (7.8-10.44); Carbon Dioxide 28 mmol/L (23-31); Chloride 102 mmol/L (98-107); Estimated GFR 71; Globulin 2.5 g/dL (2.4-3.5); Glucose 93 mg/dL (80-115); Lipase 7 U/L (8-78); Potassium 3.8 mmol/L (3.5-5.1); Protein, Total 6.6 g/dL (5.8-8.1); Sodium 138 mmol/L (136-145)
== END 2022-10-21 13:59 | disposition home or self-care (01) ==
LOC: ERS 11:32
DX: R07.9 Chest pain, unspecified (principal); I10 Essential (primary) hypertension
CPT/HCPCS: 36415; 71045; 80053; 83690; 84484; 85025; 93005

== ENCOUNTER 2022-12-15 09:31 | Emergency (ER) | payer OTHER ==
[2022-12-15] MEDS ORDERED: Morphine 4 MG/ML VIAL ONE (10:56)
[2022-12-15] MEDS ORDERED: Ondansetron PF 4 MG/2 ML Vial ONE (10:56)
[2022-12-15] MEDS ORDERED: Ketorolac Tromethamine 30 MG/ML VIAL ONE (11:33)
[2022-12-15] MEDS ORDERED: fentaNYL 50 mcg/mL 1 mL Vial ONE (11:33)
[2022-12-15] MEDS ORDERED: Methocarbamol 1 GM in Sodium Chloride 0.9% 100 ML IVPB SCH (12:00)
== END 2022-12-15 13:30 | disposition home or self-care (01) ==
LOC: ERS 09:31
DX: M25.562 Pain in left knee (principal); I10 Essential (primary) hypertension; Z79.899 Other long term (current) drug therapy
CPT/HCPCS: 96374; 96375; J1885; J2270; J2405; J2800; J3010; J3490

== ENCOUNTER 2022-12-18 11:00 | Outpatient (CLI) | payer OTHER | END 2022-12-18 11:01 | disposition home or self-care (01) | LOC: BICMRI 11:00 | PROVIDERS: ATTEND Orthopaedic Surgery | DX: M23.91 Unspecified internal derangement of right knee (principal); S83.241A Other tear of medial meniscus, current injury, right knee, initial encounter; S83.281A Other tear of lateral meniscus, current injury, right knee, initial encounter; M17.11 Unilateral primary osteoarthritis, right knee; M94.261 Chondromalacia, right knee ==

== ENCOUNTER 2023-03-28 14:07 | Observation (INO) | payer OTHER ==
[2023-03-28 14:49] LABS: #Eosinphils 0.6 thou/uL (0.0-0.7); #Monocytes 0.8 thou/uL (0.11-0.59); #Neutrophils 4.7 thou/uL (1.40-6.50); %Basophils 0.3 % (0.0-1.0); %Eosinophils 6.2 % (0.0-10.0); %Lymphocytes 30.9 % (21.0-51.0); %Monocytes 8.9 % (0.0-10.0); %Neutrophils 53.4 % (42.0-75.0); Hematocrit 38.1 % (36.0-47.0); Hemoglobin 12.9 g/dL (12.0-16.0); Mean Corpuscular HGB CONC 33.9 g/dL (32.0-36.0); Mean Corpuscular Hemoglobin 32.4 pg (27.0-31.0); Mean Corpuscular Volume 95.7 fl (78.0-98.0); Mean Platelet Volume 8.8 fL (7.4-10.4); Platelet Count 235 10x3/uL (130-400); RBC Distribution Width 13.7 % (11.5-14.5); Red Blood Cell (RBC) Count 3.98 mill/uL (4.20-5.40); White Blood Cell (WBC) Count 8.9 10x3/uL (4.8-10.8)
[2023-03-28 15:16] LABS: ALT (SGPT) 22 U/L (8-55); AST (SGOT) 21 U/L (5-34); Albumin 4.1 g/dL (3.4-4.8); Alkaline Phosphatase 87 U/L (40-110); Anion Gap 12 mmol/L (10-20); BUN (Urea Nitrogen) 14 mg/dL (9.8-20.1); Bilirubin, Total 0.7 mg/dL (0.2-1.2); Calc. Creatinine Clearance 0 mL/min (70-130); Calcium 8.7 mg/dL (7.8-10.44); Carbon Dioxide 27 mmol/L (23-31); Chloride 104 mmol/L (98-107); Estimated GFR 80; Globulin 2.5 g/dL (2.4-3.5); Glucose 83 mg/dL (80-115); Lipase 18 U/L (8-78); Potassium 3.8 mmol/L (3.5-5.1); Protein, Total 6.6 g/dL (5.8-8.1); Sodium 139 mmol/L (136-145)
[2023-03-28 15:19] LABS: Troponin I Less than 0.010 ng/mL (< 0.028)
[2023-03-28] MEDS ORDERED: Acetaminophen 500 MG TAB ONE (15:22)
[2023-03-28] MEDS ORDERED: Ketorolac Tromethamine 30 MG (1 mL) VIAL ONE (15:22)
[2023-03-28] MEDS ORDERED: Metoclopramide HCl 10 MG (2 mL) VIAL ONE (15:23)
[2023-03-28] MEDS ORDERED: hydrALAZINE 10 MG TAB PO PRN (17:28)
[2023-03-28] MEDS: hydrALAZINE 10 MG TAB PO SCH (18:59)
[2023-03-28 19:02] VITALS: BMI 34.2
[2023-03-28] MEDS ORDERED: hydrALAZINE 10 MG TAB ONE (19:05)
[2023-03-28] MEDS: traMADol HCl 50 MG TAB PO PRN (22:35)
[2023-03-28] MEDS: Losartan 25 MG TAB PO SCH (22:35)
[2023-03-29 06:37] LABS: Cardiac Risk 3.8 (Less than 4.5)
[2023-03-29] MEDS: Aspirin 81 mg Enteric Coated Tablet PO SCH (08:17)
[2023-03-29] MEDS: Calcitriol 0.25 MCG CAP PO SCH (08:17)
[2023-03-29] MEDS: Escitalopram Oxalate 20 mg Tablet PO SCH (08:17)
[2023-03-29] MEDS: Acetaminophen 325 MG TAB PO PRN (08:17)
[2023-03-29] MEDS: Enoxaparin 40 MG (0.4 mL) SYRINGE SC SCH (08:18)
[2023-03-29] MEDS: Losartan 25 MG TAB PO SCH ×2 (08:20→21:00)
[2023-03-29] MEDS ORDERED: Iopamidol-370 76% 500 ML MDV (1 ML CHARGE) ONE (15:23)
[2023-03-29] MEDS: Atorvastatin Calcium 20 MG TAB PO SCH (21:02)
[2023-03-30] MEDS ORDERED: Fioricet 325/50/40 mg Tablet PO PRN (09:26)
[2023-03-30] MEDS: Promethazine HCl 12.5 MG in Sodium Chloride 0.9% 50 ML IVPB PRN (09:47)
[2023-03-30] MEDS: Losartan 25 MG TAB PO SCH (10:22)
[2023-03-30 15:56] VITALS: BP 124/81; TEMP 97.9
== END 2023-03-30 18:22 | disposition home or self-care (01) ==
LOC: ERS 14:07 → ERHOLD 16:21 → 2SE 22:15
PROVIDERS: ADMIT Internal Medicine; ATTEND Internal Medicine
DX: G43.909 Migraine, unspecified, not intractable, without status migrainosus (principal); H53.2 Diplopia; I08.9 Rheumatic multiple valve disease, unspecified; I10 Essential (primary) hypertension; E03.9 Hypothyroidism, unspecified; Z88.1 Allergy status to other antibiotic agents; Z88.8 Allergy status to other drugs, medicaments and biological substances; Z90.710 Acquired absence of both cervix and uterus; Z90.49 Acquired absence of other specified parts of digestive tract; Z90.89 Acquired absence of other organs; Z79.82 Long term (current) use of aspirin; Z79.890 Hormone replacement therapy; Z79.899 Other long term (current) drug therapy
CPT/HCPCS: 36415; 70450; 70496; 70498; 70551; 71045; 80053; 80061; 83690; 84484; 85025; 93005; 93306; 96372; 96374; 96375; G0378; J1650; J1885; J2550; J2765; Q9967

== ENCOUNTER 2023-04-07 08:02 | Day surgery (SDC) | payer OTHER ==
[2023-04-03 13:05] VITALS: BMI 34.5
[2023-04-07] MEDS ORDERED: Verapamil 5 MG/2 ML VIAL ONE (08:51)
[2023-04-07] MEDS ORDERED: Nitroglycerin 50 MG/250 ML BOT 250 ML ONE (08:52)
[2023-04-07] MEDS ORDERED: Heparin 10,000 UNITS/ 10 ML VIAL ONE (08:52)
[2023-04-07] MEDS ORDERED: Diazepam 5 MG TAB ONE (09:12)
[2023-04-07 09:40] LABS: INR-International Normal Ratio 0.9; Prothrombin Time 11.7 sec (12.0-14.7)
[2023-04-07 09:41] LABS: PTT 25.5 sec (22.9-36.1)
[2023-04-07] MEDS ORDERED: Midazolam HCl 2 mg/2 ml Vial ONE (10:01)
[2023-04-07] MEDS ORDERED: fentaNYL 50 mcg/mL 1 mL Vial ONE (10:01)
[2023-04-07] MEDS ORDERED: hydrALAZINE 20 MG/ML VIAL ONE (10:28)
== END 2023-04-07 13:09 | disposition home or self-care (01) ==
LOC: CCL 08:02
PROVIDERS: ATTEND Internal Medicine Cardiovascular Disease
PROC: 4A023N7 Measurement of Cardiac Sampling and Pressure, Left Heart, Percutaneous Approach (ICD-10-PCS; principal; 2023-04-07)
DX: R94.39 Abnormal result of other cardiovascular function study (principal); I10 Essential (primary) hypertension; Q21.12 Patent foramen ovale; E03.9 Hypothyroidism, unspecified; F41.9 Anxiety disorder, unspecified; F32.A Depression, unspecified; Z88.1 Allergy status to other antibiotic agents; Z79.899 Other long term (current) drug therapy; Z79.890 Hormone replacement therapy
CPT/HCPCS: 85610; 85730; 93005; 93010; 93458; 99152; C1769; C1894; J0360; J1644; J2250; J3010

== ENCOUNTER 2023-06-23 06:43 | Emergency (ER) | payer MEDICARE, OTHER ==
[2023-06-23 08:46] LABS: #Basophils 0.04 10x3/uL (0.0-0.2); %Basophils 0.6 % (0.0-1.0); %Eosinophils 4.5 % (0.0-10.0); %Lymphocytes 23.4 % (21.0-51.0); %Monocytes 9.1 % (0.0-10.0); %Neutrophils 62.3 % (42.0-75.0); Hemoglobin 14.4 g/dL (12.0-16.0); Mean Corpuscular HGB CONC 33.5 g/dL (32.0-36.0); Mean Corpuscular Hemoglobin 32.3 pg (27.0-31.0); Mean Corpuscular Volume 96.4 fL (78.0-98.0); Mean Platelet Volume 8.8 fL (7.4-10.4); Platelet Count 234 10x3/uL (130-400); RBC Distribution Width 13.2 % (11.5-14.5); Red Blood Cell (RBC) Count 4.46 mill/uL (4.20-5.40)
[2023-06-23 09:10] LABS: ALT (SGPT) 22 U/L (8-55); AST (SGOT) 21 U/L (5-34); Albumin 3.7 g/dL (3.4-4.8); Alkaline Phosphatase 85 U/L (40-110); Anion Gap 14 mmol/L (10-20); BUN (Urea Nitrogen) 15 mg/dL (9.8-20.1); Bilirubin, Total 0.4 mg/dL (0.2-1.2); Calc. Creatinine Clearance 0 mL/min (70-130); Calcium 9.1 mg/dL (7.8-10.44); Carbon Dioxide 28 mmol/L (23-31); Chloride 105 mmol/L (98-107); Estimated GFR 78; Globulin 3.1 g/dL (2.4-3.5); Glucose 107 mg/dL (80-115); Protein, Total 6.8 g/dL (5.8-8.1); Sodium 143 mmol/L (136-145)
[2023-06-23 09:16] LABS: Troponin I Less than 0.010 ng/mL (< 0.028)
== END 2023-06-23 10:36 | disposition home or self-care (01) ==
LOC: ERS 06:43
DX: R07.89 Other chest pain (principal); I10 Essential (primary) hypertension; Z79.899 Other long term (current) drug therapy
CPT/HCPCS: 36415; 71045; 80053; 84484; 85025; 93005

== ENCOUNTER 2023-08-09 14:42 | Outpatient (CLI) | payer MEDICARE, OTHER | END 2023-08-09 14:43 | disposition home or self-care (01) | LOC: SCSRAD 14:42 | PROVIDERS: ATTEND Nurse Practitioner Family | DX: R22.42 Localized swelling, mass and lump, left lower limb (principal) ==